=== PATIENT | female | born 1980 | race Caucasian/White ===

== ENCOUNTER 2022-06-04 18:56 | Emergency (ER) | payer MEDICAID, OTHER ==
[~2022-06-04] VITALS: Ht 154.9 cm; Wt 77.1 kg
[2022-06-04 19:10] VITALS: BP 121/83
--- NOTE | 2022-06-04 19:10 | NUR ---
TO BED AMBULATORY
[2022-06-04 19:27] LABS: BASOPHILS % (AUTO) 0.2 % (0.0-2.0); EOSINOPHILS % (AUTO) 0.4 % (0.0-4.0); HEMATOCRIT 41.9 % (36-48); HEMOGLOBIN 14.3 g/dL (12.0-16.0); LYMPHOCYTES # (AUTO) 0.9 K/uL (2.5-16.5); LYMPHOCYTES % (AUTO) 9.2 % (20.5-51.1); MEAN CORPUSCULAR HEMOGLOBIN 28 pg (27-31); MEAN CORPUSCULAR HGB CONC 34 g/dL (33-37); MEAN CORPUSCULAR VOLUME 81.1 fL (80-94); MONOCYTES # (AUTO) 0.4 K/uL (0.8-1.0); MONOCYTES % (AUTO) 4.4 % (1.7-9.3); NEUTROPHILS # (AUTO) 8.2 K/uL (1.8-7.7); NEUTROPHILS % (AUTO) 85.8 % (42.2-75.2); PLATELET COUNT (AUTO) 283 K/uL (140-450); RED BLOOD CELL COUNT(AUTO) 5.16 MIL/uL (4.20-5.40); RED CELL DISTRIBUTION WIDTH 14.8 % (11.6-13.7); WHITE BLOOD COUNT (AUTO) 9.5 K/uL (4.8-10.8)
--- NOTE | 2022-06-04 19:46 | NUR ---
c/o upper abd pain, nausea vomiting diarrhea x 1 day. denies pmhx, denies allergies.
[2022-06-04 19:47] LABS: ALBUMIN 3.8 g/dL (3.4-5.0); ANION GAP 12.8 (8-16); CARBON DIOXIDE 28.4 mmol/L (21-32); CREATININE 0.9 mg/dL (0.6-1.3); POTASSIUM 4.2 mmol/L (3.5-5.1); TOTAL BILIRUBIN 0.6 mg/dL (0.0-1.0)
--- NOTE | 2022-06-04 19:48 | NUR ---
Dr. Ellis evaluating patient at this time
[2022-06-04] MEDS ORDERED: ONDANSETRON 4 MG/2 ML VIAL IVP ONE (19:55)
[2022-06-04] MEDS ORDERED: NACL 0.9% 1,000 ML IV ONE (20:20)
[2022-06-04] MEDS ORDERED: FAMOTIDINE 20 MG/2 ML VIAL IVP ONE (20:45)
[2022-06-04] MEDS ORDERED: DICYCLOMINE HCL LIQUID 20 MG, ALUMINUM HYD/MAG/SIMETHICONE 30 ML, LIDOCAINE VISCOUS 2% ... PO ONE ×3 (20:45)
[2022-06-04] MEDS ORDERED: ALUMINUM HYD/MAG/SIMETHICONE 30 ML UDC ONE (20:54)
[2022-06-04] MEDS ORDERED: DICYCLOMINE HCL LIQUID 10 MG/5 ML UDC ONE (20:54)
[2022-06-04] MEDS ORDERED: HALOPERIDOL IM 5 MG/ML VIAL IVP ONE (21:20)
--- NOTE | 2022-06-04 21:54 | NUR ---
Pt ambulate to restroom gait steady
--- NOTE | 2022-06-04 22:16 | NUR ---
Pt taken to CT
--- NOTE | 2022-06-04 22:27 | NUR ---
Pt returned from CT
[2022-06-04] MEDS ORDERED: ACET-10509 PO (23:05)
[2022-06-04] MEDS ORDERED: MAG-27 PO (23:05)
[2022-06-04 23:15] VITALS: BP 121/83
--- NOTE | 2022-06-04 23:15 | NUR ---
Patient discharged with v/s stable. Written and verbal after care instructions given and explained. New rx tylenol and mylanta. Patient verbalized understanding. Ambulatory with gait steady. Accompanied by . All questions addressed prior to discharge. Advised to follow up with PMD.
== END 2022-06-04 23:15 | disposition home or self-care (01) ==
LOC: MED 18:56
DX: R11.2 Nausea with vomiting, unspecified (principal); R19.7 Diarrhea, unspecified; R10.13 Epigastric pain
CPT/HCPCS: 36415; 74177; 80053; 81025; 83690; 84703; 85025; 96361; 96374; 96375; 99285; J1630; J2405; J3490; J7030; Q9967

== ENCOUNTER 2023-11-24 18:28 | Emergency (ER) | payer OTHER ==
[~2023-11-24] VITALS: Ht 154.9 cm; Wt 74.8 kg
[~2023-11-24 18:28] MED LIST: ACET500T99 PO; MAG-27 PO
[2023-11-24 19:32] VITALS: BP 131/81; PULSE 75; RESP 20; TEMP 98.2; O2SAT 98
[2023-11-24] MEDS ORDERED: DICL20GE TP (22:04)
[2023-11-24] MEDS ORDERED: NAPR-337 PO (22:04)
[2023-11-24] MEDS: KETOROLAC 30 MG/ML VIAL IM ONE (22:09)
== END 2023-11-24 22:40 | disposition home or self-care (01) ==
LOC: MED 18:28
DX: S93.601A Unspecified sprain of right foot, initial encounter (principal); Z79.899 Other long term (current) drug therapy; X58.XXXA Exposure to other specified factors, initial encounter; Y92.89 Other specified places as the place of occurrence of the external cause; Y93.89 Activity, other specified; Y99.8 Other external cause status
CPT/HCPCS: 73630; 81025; 96372; 99283; J1885

== ENCOUNTER 2023-11-26 13:28 | Emergency (ER) | payer OTHER ==
[~2023-11-26] VITALS: Ht 154.9 cm; Wt 80.5 kg
[~2023-11-26 13:28] MED LIST changes: +DICL20GE TP; +NAPR-337 PO
[2023-11-26 13:39] VITALS: BP 136/85; PULSE 98; RESP 18; TEMP 97.7; O2SAT 98
[2023-11-26] MEDS ORDERED: PRED20TA5 PO (14:03)
[2023-11-26] MEDS ORDERED: ACET500T99 PO (14:03)
== END 2023-11-26 14:19 | disposition home or self-care (01) ==
LOC: MED 13:28
DX: M79.671 Pain in right foot (principal); Z79.899 Other long term (current) drug therapy
CPT/HCPCS: 99283